=== PATIENT | female | born 1980 | race Caucasian/White ===

== ENCOUNTER 2017-02-16 04:54 | Emergency (ER) | payer OTHER, BC ==
[2017-02-16] MEDS ORDERED: ORTHTAB14 PO (05:02)
[2017-02-16] MEDS ORDERED: ONDANSETRON 4MG/2ML VIAL (J2405) As Ordered ONE (05:12)
[2017-02-16] MEDS ORDERED: NS 1,000 ML IV ONE (05:15)
[2017-02-16] MEDS ORDERED: ONDANSETRON 4MG/2ML VIAL (J2405) IV ONE (05:15)
[2017-02-16] MEDS ORDERED: levETIRAcetam INJection 1,000 MG in D5W 100 ML IV ONE (05:45)
--- NOTE | 2017-02-16 06:00 | REPUSA ---
CLINICAL HISTORY: Seizure. TECHNIQUE: Multiple axial brain CT scan sections were obtained from base to vertex without contrast a dministration. COMMENTS: 3.8x2.5 cm ill-defined cortical/subcortical hypodensity in the left frontal lobe. Effacement of the adjacent sulci. The study shows normal configuration of sella turcica. There are no intra or extra-axial collections. There is no mass effect or midline shift. There is no evidence of hematoma formation. No hydrocephal us is present. No abnormal calcifications are noted. The sinuses and mastoid air cells are patent. IMPRESSION: 3.8x2.5 cm ill-defined cortical/subcortical hypodensity in the left frontal lobe. Effacement of the adjacent sulci. Ischemic versus neoplastic pathology. This needs further evaluation by means of repeat CT exam with IV contrast and/or MRI if available. Thank you for your kind referral of this patient.
[2017-02-16 06:22] LABS: BASO % 0.4 % (0.0-1.0); EOS # 0.2 K/mm3 (0.0-0.50); LARGE UNSTAINED CELL # 0.1 K/mm3 (0.0-0.4); LARGE UNSTAINED CELL % 1.9 % (0.0-4.0); LYMPH % 19.7 % (24.0-44.0); MEAN CORPUSCULAR HGB CONC 35.6 g/dl (32.0-36.5); MEAN CORPUSCULAR VOLUME 92.7 fl (80.0-96.0); MONO # 0.3 K/mm3 (0.0-0.8); NEUTROPHILS # 3.6 K/mm3 (1.8-7.7); PLATELET COUNT, AUTOMATED 259 k/mm3 (150-450); RED CELL DISTRIBUTION WIDTH 11.6 % (11.5-14.5); WHITE BLOOD COUNT 5.2 K/mm3 (4.0-10.0)
[2017-02-16 06:27] LABS: CONTROL LINE HCG INT CTR LINE PRESENT
[2017-02-16 06:37] LABS: OSMOLALITY SERUM 296 MOSM/KG (275-295)
[2017-02-16 06:55] LABS: ALBUMIN 3.8 GM/DL (3.2-5.2); ALBUMIN/GLOBULIN RATIO 1.15 (1.00-1.93); ALT/SGPT 31 U/L (12-78); ANION GAP 11 MEQ/L (8-16); AST/SGOT 19 U/L (15-37); BILIRUBIN,DIRECT 0.2 MG/DL (0.0-0.2); BILIRUBIN,TOTAL 0.6 MG/DL (0.2-1.0); BLOOD UREA NITROGEN 12 MG/DL (7-18); CALCIUM LEVEL 8.3 MG/DL (8.5-10.1); CARBON DIOXIDE LEVEL 27 MEQ/L (21-32); CHLORIDE LEVEL 106 MEQ/L (98-107); CREATININE FOR GFR 0.64 MG/DL (0.55-1.02); GLOMERULAR FILTRATION RATE > 60.0 (>60); GLUCOSE, FASTING 117 MG/DL (70-105); POTASSIUM SERUM 3.8 MEQ/L (3.5-5.1); SODIUM LEVEL 144 MEQ/L (136-145); TOTAL PROTEIN 7.1 GM/DL (6.4-8.2)
[2017-02-16 07:12] LABS: METHADONE URINE NEGATIVE (NEGATIVE)
[2017-02-16 07:16] LABS: ALKALINE PHOSPHATASE 59 U/L (45-117)
[2017-02-16] MEDS ORDERED: levETIRAcetam 250MG TABLET (KEPPRA) PO SCH (09:00)
[2017-02-16] MEDS ORDERED: fentaNYL 100 MCG/2 ML INJECTION (J3010) IV ONE (09:00)
--- NOTE | 2017-02-16 09:07 | REP ---
Clinical: Altered mental status . Comparison: None . Findings: The mediastinum and cardiac silhouette are stable and within normal limits for portable technique. The lung east are clear without acute consolidation, effusion, or pneumothorax. Skeletal structures are intact. Impression: No acute cardiopulmonary process appreciated. Signed by Bowen Gaffney MD 02/16/2017 08:59 A
[2017-02-16] MEDS ORDERED: ACETAMINOPHEN TAB 650MG DOSE (2X325MG) PO ONE (10:30)
--- NOTE | 2017-02-16 11:45 | REP ---
Clinical: Seizures with subacute headaches. Technique: Noncontrast 3-D [id number] source images with multiplanar multi rotational MIP sequencing. Findings: The vertebrobasilar system and [place] of [place] appear intact and normal. Vascularity to the bilateral hemispheres appears symmetric. No arteriovenous malformation or aneurysm identified. Impression: Normal MRA of the brain. Signed by Bowen Gaffney MD 02/16/2017 11:37 A
[2017-02-16 12:14] VITALS: BP 135/80
--- NOTE | 2017-02-16 17:27 | ECGEPIP ---
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
--- NOTE | 2017-02-17 22:01 | ER ---
DATE OF CONSULTATION: 02/16/2017 REASON FOR CONSULTATION: New-onset seizure. HISTORY OF PRESENT ILLNESS: Sarah Calderón is a 36-year-old female without any significant past medical history, currently on control medicine, presenting to [facility] with new-onset seizure. The patient was noted by her to have grunting noise in her sleep followed by generalized tonic-clonic activity. The activity lasted approximately 30 seconds. Prior to the seizure, previously the patient was complaining of intermittent headache which resolved on its own. The patient was postictal upon EMS arrival. The patient has some discomfort when trying to sit up in bed. Initial head CT showed an abnormality involving her left frontal lobe, possibly ischemia versus neoplasm in nature. MRI of the brain was obtained. Initial reports were documented to suggest possible demyelination versus possible neoplasm. I was contacted by Dr. Dain Funez and recommended MR venogram as well as an MR spectroscopy which unfortunately was not available to be completed at [facility]. [facility] was at full capacity. I recommended the patient be transferred for further workup and management to either [facility] or [facility]. Dr. Dain Funez was able to contact the stroke department of [facility]. I spoke with Dr. Galvan myself and discussed the results of the MRI scan and concern for possible venous stroke versus low grade glioma which did not enhance with MRI gadolinium. Dr. Galvan agreed to go ahead and accept the patient from ER to ER and admit the patient for further workup and management. The patient was loaded with 1 gram of Keppra since being at [facility]. The patient is ordered to have an additional 1000 mg of Keppra by mouth twice a day. I had a long discussion with the patient's parents and the patient's as well as the patient in regards to driving restrictions due to the patient having a seizure. She has been counseled to avoid driving, operating heavy machinery, climbing ladders, working from heights, etc., for the 6 months. It is a reasonable idea to discontinue control medications at this time. REVIEW OF SYSTEMS: The patient complains of some discomfort with headache when she tries to sit up, however laying down and sneezing and straining does not worsen her headache. The patient denies any weakness or numbness through the body. She denies any double vision, blurred vision, vertigo, dysarthria, dysphasia. 14-point review of systems obtained and is negative except as per HPI. PAST MEDICAL HISTORY: None. SOCIAL HISTORY: The patient uses alcohol only socially. Denies use of any tobacco and illicit drugs. FAMILY HISTORY: Noncontributory. CURRENT MEDICATIONS: - oral contraceptive pill daily, Ortho Tri-Cyclen Lo ALLERGIES: No known drug allergies. IMAGING STUDIES: MRI of brain, head CT shows 3.8 x 2.5 cm ill-defined left frontal lobe abnormality without enhancement, cannot entirely exclude venous stroke versus low grade glioma. Laboratory work so far includes normal CBC, osmolality increased at 269, TSH 4.74, calcium 8.3, glucose 117. EKG normal sinus rhythm. NEUROLOGICAL EXAMINATION: The patient is awake, alert, oriented to person, place and time. Speech, language, comprehension and repetition are intact. Pupils are 3 mm round, reactive to light. Extraocular movements intact in all directions without any nystagmus, though the patient has some discomfort when doing so with mild choppy pursuits at times. Sensation V1, V2, V3 is intact to light touch. No facial asymmetry to activation. Palate elevates symmetrically. Tongue is midline. No weakness in sternocleidomastoids bilaterally. There is no pronator drift. Strength is 5/5 including bilateral deltoids, biceps, triceps, handgrip, iliopsoas, quadriceps, anterior tibialis. Deep tendon reflexes are 2+ throughout. Babinski signs are absent. Sensory is intact to light touch in all four extremities. Coordination: Normal [id number] without any signs of ataxia or dysmetria. Gait deferred. ASSESSMENT: 1. New-onset seizure, generalized tonic-clonic in nature with positive postictal confusion. 2. Abnormal MRI of the brain report with left frontal lobe lesion possibly being a stroke versus low grade glioma, less likely demyelination. 3. Lesion is less likely stroke and more suspicious of a tumor, low grade tumor can appear without enhancement. PLAN: 1. Continue Keppra 1000 mg by mouth twice a day. 2. I recommend the patient have an MR venogram to rule out cortical venous thrombus. 3. Recommend MR spectroscopy to better assess for tumor vs ischemia. 4. Recommend neurosurgical consultation. 5. The patient will be transferred to [facility]. Case discussed with Dr. Roland Galvan, stroke neurologist at [facility] who has accepted the patient in transfer from ER to ER. 6. Patient advised no driving, operating heavy machinery, climbing ladders, working from heights, etc., for the next 6 months. 7. The patient can followup in the neurology clinic as an outpatient. 8. Case discussed with the patient, the patient's and the patient's parents. Plan discussed with Dr. Dain Funez. edited: 03/01/2017 0740 [id number]
--- NOTE | 2017-02-18 08:35 | REP ---
Clinical: New onset seizures. Comparison: CT dated 02/16/2017. Technique: Standard pre and postcontrast MRI of the brain using 14 ml ProHance gadolinium based contrast agent. Findings: A 4 cm focus of high signal intensity in the left frontal lobe is appreciated on T2, FLAIR, ADC and DWI sequences. Postcontrast axial and coronal sequences show no associated enhancing lesion. These findings likely represent a subacute left frontal lobe infarction with T2 shine through effect however, less likely differential includes focal demyelinating disease. The remainder of the examination appears relatively normal. Canseco-white differentiation is otherwise maintained. No further intracranial mass/mass effect, hemorrhage, or abnormal signal intensity foci are identified. Midbrain and midline structures as well as the posterior fossa appear normal mucoperiosteal changes to the ethmoid and maxillary sinuses suggests sinusitis. The bilateral orbits are normal. Impression: Focal area of abnormal signal intensity in the left frontal lobe. Findings suggest subacute infarction. However, demyelinating disease cannot definitively be excluded. Signed by Bowen Gaffney MD 02/18/2017 08:27 A
== END 2017-02-16 12:16 | disposition short-term general hospital (02) ==
LOC: M ED 04:54
DX: R51 Headache (principal); R56.9 Unspecified convulsions; R90.89 Other abnormal findings on diagnostic imaging of central nervous system; Z79.3 Long term (current) use of hormonal contraceptives
CPT/HCPCS: 70450; 70544; 70553; 71010; 80048; 80076; 80307; 81001; 82550; 82553; 83605; 83930; 84443; 84703; 85025; 87040; 87086; 93005; 93041; 94760; 96374; 96375; 99285; A9576; G0480; J1953; J2405; J3010

== ENCOUNTER → 2017-02-27 | Outpatient (CLI) | payer OTHER, BC ==
[~2017-02-27] MED LIST: ORTHTAB14 PO
[2017-02-27 18:11] LABS: THYROID PEROXIDASE ANTIBODY < 28.0 U/ML (<60.0)
[2017-02-27 18:15] LABS: FREE T4 1.15 NG/DL (0.76-1.46)
== END ==
LOC: M SMT 15:35
PROVIDERS: ATTEND Physician Assistant Medical
DX: R94.6 Abnormal results of thyroid function studies (principal)